=== PATIENT | male | born 1990 | race Caucasian/White ===

== ENCOUNTER 2020-02-26 19:00 | Emergency (ER) | payer BC ==
[~2020-02-26] VITALS: Ht 172.7 cm; Wt 65.9 kg
[2020-02-26 19:53] VITALS: BP 126/67; PULSE 83; TEMP 97.9
== END 2020-02-26 19:53 | disposition home or self-care (01) ==
LOC: COL.ER 19:00
DX: T18.9XXA Foreign body of alimentary tract, part unspecified, initial encounter (principal); Z88.4 Allergy status to anesthetic agent; W45.8XXA Other foreign body or object entering through skin, initial encounter